=== PATIENT | male | born 1945 | race Caucasian/White ===

== ENCOUNTER 2018-11-09 07:43 | Day surgery (SDC) | payer MEDICARE, BC ==
[~2018-11-09 07:43] MED LIST: Lidocaine 1% PF 2 ML SDV INJECT SCH
[2018-11-09] MEDS: Polymyxin B/Trimethoprim 10 ML Bottle EYERT SCH ×4 (07:55→09:59)
[2018-11-09] MEDS: Tropicamide 1% Ophth Soln 15 ML Bottle EYERT SCH ×5 (08:00→08:44)
[2018-11-09] MEDS: Brimonidine 0.2% Ophth Soln 15 ML Bottle EYERT SCH ×2 (08:00→08:37)
[2018-11-09] MEDS: Phenylephrine 2.5% Ophth Soln 2 ML Bot EYERT SCH ×6 (08:05→09:41)
--- NOTE | 2018-11-09 08:09 | PCM.PREANE ---
Preanesthetic Assessment - Anesthesia/Transfusion/Family Hx Anesthesia History: Prior Anesthesia Without Reaction Family History of Anesthesia Reaction: No Transfusion History: No Prior Transfusion(s) - Review of Systems General: No Symptoms Pulmonary: Cough Cardiovascular: No Symptoms Gastrointestinal: No Symptoms Neurological: No Symptoms Other: Reports: None - Physical Assessment NPO Status Date: 11/08/18 NPO Status Time: 19:00 Pulse: 78 O2 Sat by Pulse Oximetry: 96 Respiratory Rate: 16 Blood Pressure: 162/94 Vital Signs: Last Vital Signs Temp 36.4 C 11/09/18 07:50 Pulse 78 11/09/18 07:50 Resp 16 11/09/18 07:50 BP 162/94 H 11/09/18 07:50 Pulse Ox 96 11/09/18 07:50 Height: 1.93 m Weight: 138.346 kg ASA Class: 2 Mental Status: Alert & Oriented x3 Airway Class: Mallampati = 2 Dentition: Reports: Normal Dentition Thyro-Mental Finger Breadths: 3 Mouth Opening Finger Breadths: 3 Lungs: Clear to Auscultation, Normal Respiratory Effort Cardiovascular: Regular Rate, Regular Rhythm - Allergies Allergies/Adverse Reactions: Allergies Allergy/AdvReac Type Severity Reaction Status Date / Time No Known Allergies Allergy Verified 11/06/18 13:48 - Anesthesia Plan Beta Enrike: Metoprolol Med Last Dose Date: 11/09/18 Med Last Dose Time: 06:15 - Acknowledgements Anesthesia Type Planned: MAC Pt an Appropriate Candidate for the Planned Anesthesia: Yes Alternatives and Risks of Anesthesia Discussed w Pt/Guardian: Yes Pt/Guardian Understands and Agrees with Anesthesia Plan: Yes PreAnesthesia Questionnaire HEENT History: Reports: Cataract, Impaired Vision Cardiovascular History: Reports: High Cholesterol, Hypertension, Other (See Below) (hx palpitations, pt states he feels he hasn't had any recently due to no longer having caffeine.) Respiratory History: Reports: Sleep Apnea (CPAP) Gastrointestinal History: Reports: None Genitourinary History: Reports: Renal Calculus Musculoskeletal History: Reports: None Neurological History: Reports: None Psychiatric History: Reports: None Endocrine/Metabolic History: Reports: Diabetes, Type II (BS 148 @ 0630) Hematologic History: Reports: None - Past Surgical History HEENT Surgical History: Reports: Tonsillectomy Cardiovascular Surgical History: Reports: None Respiratory Surgical History: Reports: None GI Surgical History: Reports: Colonoscopy Endocrine Surgical History: Reports: None Neurological Surgical History: Reports: None Musculoskeletal Surgical History: Reports: None Oncologic Surgical History: Reports: Bone Marrow Aspiration (06/13 negative, were looking for bone CA per pt) - SUBSTANCE USE Smoking Status *Q: Never Smoker - HOME MEDS Home Medications: Home Meds Allopurinol [Zyloprim] 50 mg PO DAILY 11/06/18 [History] Dulaglutide [Trulicity] 1 dose SQ ASDIRECTED 11/06/18 [History] Empagliflozin [Jardiance] 25 mg PO DAILY 11/06/18 [History] Furosemide [Lasix] 40 mg PO DAILY 11/06/18 [History] Metoprolol Tartrate 150 mg PO BID 11/06/18 [History] Pramipexole [Mirapex] 1 mg PO BID 11/06/18 [History] Telmisartan 80 mg PO DAILY 11/06/18 [History] Terazosin [Hytrin] 5 mg PO DAILY 11/06/18 [History] amLODIPine Besylate [Amlodipine Besylate] 10 mg PO DAILY 11/06/18 [History] atorvaSTATin [Lipitor] 40 mg PO DAILY 11/06/18 [History] - CURRENT (IN HOUSE) MEDS Current Meds: Current Medications Brimonidine Tartrate (Brimonidine Tartrate 0.2% Ophth Soln) 0 ml EYERT ASDIRECTED RAJIV Stop: 11/09/18 18:00 Last Admin: 11/09/18 08:00 Dose: 1 drop Cefuroxime Sodium (Zinacef) 0 mg EYERT ASDIRECTED RAJIV Stop: 11/09/18 18:00 Lidocaine HCl (Xylocaine-Mpf 1%) 0 ml INJECT ASDIRECTED RAJIV Stop: 11/09/18 18:00 Phenylephrine HCl (Petr-Synephrine 2.5% Ophth Soln) 0 ml EYERT ASDIRECTED RAJIV Stop: 11/09/18 18:00 Pilocarpine HCl (Pilocar 4% Ophth Soln) 0 ml EYERT ASDIRECTED RAJIV Stop: 11/09/18 18:00 Polymyxin/Trimethoprim Sulfate (Polytrim Ophth Soln) 0 ml EYERT ASDIRECTED RAJIV Stop: 11/09/18 18:00 Last Admin: 11/09/18 07:55 Dose: 1 drop Tetracaine HCl (Tetracaine 0.5% Steri-Unit Dena) 0 ml EYERT ASDIRECTED RAJIV Stop: 11/09/18 18:00 Tropicamide (Mydriacyl 1% Ophth Soln) 0 ml EYERT ASDIRECTED RAJIV Stop: 11/09/18 18:00 Last Admin: 11/09/18 08:00 Dose: 1 drop Discontinued Medications Brimonidine Tartrate (Alphagan 0.2% Ophth Soln) 0 ml EYERT ASDIRECTED RAJIV Stop: 11/09/18 18:00
[2018-11-09] MEDS: Tetracaine HCl/PF 0.5% 4 ML Bottle EYERT SCH ×5 (08:49→09:49)
[2018-11-09] MEDS: Pilocarpine 4% Ophth Soln 15 ML Bot EYERT SCH ×2 (09:08→09:59)
[2018-11-09] MEDS: Cefuroxime 10 MG/ML SYRINGE EYERT SCH ×2 (09:08→09:58)
[2018-11-09] MEDS: Brimonidine 0.2% Ophth Soln 5 ML Bottle EYERT SCH ×2 (09:08→09:59)
--- NOTE | 2018-11-09 10:00 | PCM48HPAN ---
Post Anesthesia Note - EVALUATION WITHIN 48HRS OF ANESTHETIC Vital Signs in Normal Range: Yes Patient Participated in Evaluation: Yes Respiratory Function Stable: Yes Airway Patent: Yes Cardiovascular Function Stable: Yes Hydration Status Stable: Yes Pain Control Satisfactory: Yes Nausea and Vomiting Control Satisfactory: Yes Mental Status Recovered: Yes Pulse Rate: 78 Resp Rate: 16 Blood Pressure: 162/94
== END 2018-11-09 10:11 | disposition home or self-care (01) ==
LOC: JD.SDS 07:43
PROVIDERS: ATTEND Ophthalmology
DX: H25.813 Combined forms of age-related cataract, bilateral (principal); H02.834 Dermatochalasis of left upper eyelid; H02.831 Dermatochalasis of right upper eyelid; H16.223 Keratoconjunctivitis sicca, not specified as Sjogren's, bilateral; H16.103 Unspecified superficial keratitis, bilateral; E11.9 Type 2 diabetes mellitus without complications; E78.00 Pure hypercholesterolemia, unspecified; I10 Essential (primary) hypertension; G47.30 Sleep apnea, unspecified; M10.9 Gout, unspecified; Z99.89 Dependence on other enabling machines and devices; Z79.899 Other long term (current) drug therapy
CPT/HCPCS: 66984; J0697; J2001; C1780

== ENCOUNTER 2020-06-29 09:58 | Day surgery (SDC) | payer MEDICARE, BC ==
[~2020-06-29 09:58] MED LIST changes: +Lactated Ringers 1,000 ML IV SCH; -Lidocaine 1% PF 2 ML SDV INJECT SCH; +Lidocaine 1%/Sod Bicarbonate in NS 8.4% 1 ML Syringe IDERM PRN; +Sodium Chloride 0.9% 10 ML Syringe FLUSH PRN
[2020-06-29] MEDS ORDERED: Propofol 200 MG/20 ML SDV ONE ×3 (11:17→13:03)
[2020-06-29] MEDS ORDERED: fentaNYL 100 MCG/2 ML SDV ONE (11:22)
--- NOTE | 2020-06-29 11:26 | PCM.PREANE ---
Preanesthetic Assessment - Procedure Proposed Procedure: Screening colonoscopy - Anesthesia/Transfusion/Family Hx Anesthesia History: Prior Anesthesia Without Reaction Family History of Anesthesia Reaction: No Transfusion History: No Prior Transfusion(s) - Review of Systems General: No Symptoms Pulmonary: Other (Sleep Apnea with CPAP) Cardiovascular: Palpitations (Occasional , controlled with metoprolol. ), Other (CHF, Lasix. ) Gastrointestinal: No Symptoms Neurological: No Symptoms Other: Reports: Diabetes (Blood glucose 143mg/dl) - Physical Assessment NPO Status Date: 06/29/20 NPO Status Time: 04:30 (prep) Vital Signs: Last Vital Signs Temp 36.2 C 06/29/20 09:54 Pulse 84 06/29/20 09:54 Resp 18 06/29/20 09:54 BP 191/98 H 06/29/20 09:54 Pulse Ox 94 L 06/29/20 09:54 Height: 1.93 m Weight: 128 kg ASA Class: 3 Mental Status: Alert & Oriented x3 (drowsy today didn't get much sleep last evening) Airway Class: Mallampati = 2 Dentition: Reports: Broken Tooth/Teeth Thyro-Mental Finger Breadths: 3 Mouth Opening Finger Breadths: 3 ROM/Head Extension: Full Lungs: Clear to Auscultation, Normal Respiratory Effort, Decreased Breath Sounds Cardiovascular: Regular Rate, Regular Rhythm - Lab Values: Laboratory Last Values POC Glucose 143 mg/dL (83-110) H 06/29/20 10:09 - Allergies Allergies/Adverse Reactions: Allergies Allergy/AdvReac Type Severity Reaction Status Date / Time No Known Allergies Allergy Verified 06/29/20 10:34 - Acknowledgements Anesthesia Type Planned: MAC Pt an Appropriate Candidate for the Planned Anesthesia: Yes Alternatives and Risks of Anesthesia Discussed w Pt/Guardian: Yes Pt/Guardian Understands and Agrees with Anesthesia Plan: Yes PreAnesthesia Questionnaire HEENT History: Reports: Allergic Rhinitis, Cataract, Impaired Vision, Other (See Below) Other HEENT History: nasal congestion, rhinorrhea, wears hearing aids Cardiovascular History: Reports: Heart Failure, Hypertension, Other (See Below) Other Cardiovascular History: palpitations Respiratory History: Reports: Sleep Apnea Gastrointestinal History: Reports: None, Colon Polyp, Other (See Below) Other Gastrointestinal History: chronic anal fissure Genitourinary History: Reports: Renal Calculus, Other (See Below) Other Genitourinary History: erectile dysfunction, hypogonadism, yeast infection, kidney stones [employer] H[employer]/HOSTESS History: Reports: None Musculoskeletal History: Reports: Gout, Osteoarthritis, Other (See Below) Other Musculoskeletal History: restless leg syndrome Neurological History: Reports: None Psychiatric History: Reports: None Endocrine/Metabolic History: Reports: Diabetes, Type II Hematologic History: Reports: None Immunologic History: Reports: None Oncologic (Cancer) History: Reports: None Dermatologic History: Reports: Other (See Below) Other Dermatologic History: stasis dermatits, perianal lesion - Infectious Disease History Infectious Disease History: Reports: None - Past Surgical History Head Surgeries/Procedures: Reports: None HEENT Surgical History: Reports: Cataract Surgery, Tonsillectomy Cardiovascular Surgical History: Reports: None Respiratory Surgical History: Reports: None GI Surgical History: Reports: Colonoscopy Female Surgical History: Reports: None Male Surgical History: Reports: None Endocrine Surgical History: Reports: None Neurological Surgical History: Reports: None Musculoskeletal Surgical History: Reports: None Oncologic Surgical History: Reports: Bone Marrow Aspiration Dermatological Surgical History: Reports: None - SUBSTANCE USE Tobacco Use Status *Q: Never Tobacco User Days Per Week of Alcohol Use: 4 Number of Drinks Per Day: 4 Total Drinks Per Week: 16 Recreational Drug Use History: No - HOME MEDS Home Medications: Home Meds Dulaglutide [Trulicity] 1 dose SQ TU 11/06/18 [History] Metoprolol Tartrate 150 mg PO BID 11/06/18 [History] Pramipexole [Mirapex] 1 - 2 mg PO BEDTIME 11/06/18 [History] Telmisartan 80 mg PO DAILY 11/06/18 [History] Terazosin [Hytrin] 5 mg PO DAILY 11/06/18 [History] allopurinoL [Zyloprim] 50 mg PO DAILY 11/06/18 [History] atorvaSTATin [Lipitor] 40 mg PO DAILY 11/06/18 [History] Azelastine [Astelin Nasal Soln] 1 dose NASBOTH DAILY 06/28/20 [History] Betamethasone/Propylene Glyc [Betamethasone Dp Aug 0.05% Oin] 1 dose TOP BID PRN 06/28/20 [History] Empagliflozin/Metformin HCl [Synjardy Xr 25-1,000 mg Tablet] 1 tab PO DAILY 06/28/20 [History] Fluticasone Propionate [Flonase] 1 dose NASBOTH DAILY 06/28/20 [History] Furosemide [Lasix] 30 mg PO DAILY 06/28/20 [History] Sildenafil [Viagra] 100 mg PO ASDIRECTED PRN 06/28/20 [History] Testosterone 1 dose TOP DAILY 06/28/20 [History] amLODIPine [Norvasc] 5 mg PO DAILY 06/28/20 [History] - CURRENT (IN HOUSE) MEDS Current Meds: Current Medications Lactated Ringer's (Ringers, Lactated) 1,000 mls @ 125 mls/hr IV ASDIRECTED RAJIV Stop: 06/29/20 23:00 Last Admin: 06/29/20 10:12 Dose: 125 mls/hr Documented by: Lidocaine/Sodium Bicarbonate (Buffered Lidocaine 1% In Ns 8.4%) 0.25 ml IDERM ONETIME PRN PRN Reason: Prior to IV Start Stop: 06/29/20 18:00 Last Admin: 06/29/20 10:12 Dose: 0.25 ml Documented by: Sodium Chloride (Saline Flush) 10 ml FLUSH ASDIRECTED PRN PRN Reason: Keep Vein Open Stop: 07/02/20 18:00
[2020-06-29] MEDS ORDERED: Lactated Ringers 1,000 ML ONE (11:29)
[2020-06-29] MEDS ORDERED: Lidocaine 1% 4 ML ONE (11:30)
--- NOTE | 2020-06-29 13:28 | PCM48HPAN ---
Post Anesthesia Note - EVALUATION WITHIN 48HRS OF ANESTHETIC Vital Signs in Normal Range: Yes Patient Participated in Evaluation: Yes Respiratory Function Stable: Yes Airway Patent: Yes Cardiovascular Function Stable: Yes Hydration Status Stable: Yes Pain Control Satisfactory: Yes Nausea and Vomiting Control Satisfactory: Yes Mental Status Recovered: Yes Vital Signs: Last Vital Signs Temp 97.2 F 06/29/20 09:54 Pulse 84 06/29/20 09:54 Resp 18 06/29/20 09:54 BP 191/98 H 06/29/20 09:54 Pulse Ox 94 L 06/29/20 09:54 1323 111/54 93 77 16 97.0
--- NOTE | 2020-06-29 13:31 | PCM.PRNOTE ---
- Free Text/Narrative Note: Date: 06/29/2020 Procedure: Screening colonoscopy Endoscopist: Jeet Yang MD Findings: Morbidly obese patient with challenging colonoscopy. Several polyps identified, 7 total were biopsied. Scattered diverticula. Internal hemorrhoids. Detailed Report: The patient was taken to the endoscopy suite and placed in left lateral decubitus position. Timeout was performed and monitored anesthesia care was initiated. The anus appeared normal, sphincter tone was hypotensive, and p rostate felt normal. Digital rectal exam was otherwise unremarkable. The colonoscope was inserted and advanced all the way to the cecum. This was quite challenging due to the patient's body habitus and colon redundancy. The cecum was reached, and the appendiceal orifice was visualized. Not far from the appendiceal orifice was a sessile lesion, consistent with the lesion described in prior report which had come back as a sessile serrated adenoma in 2018. This lesion did not measure more than 1 cm. This was very difficult to biopsy with forceps. Pieces of tissue were taken, and attempts at fulguration were made, but this was very challenging to access. An additional small pedunculated polyp was identified in the ascending colon, which was removed with hot snare polypectomy technique. Between the ascending colon and the descending colon, several small sessile polyps were identified, and in total 7 specimens were sent for pathologic analysis. Technique for polypectomy included removal with forceps and fulguration of tissue base and hot snare polypectomy if the polyp was amenable to this. There were a few scattered diverticula noted throughout the length of the colon. No lesions were noted in the sigmoid or rectum. On retroflexion of the scope within the rectum, minor internal hemorrhoids were appreciated. Air was suctioned from the colon prior to withdrawal of the scope. The patient tolerated the procedure well.
== END 2020-06-29 14:25 | disposition home or self-care (01) ==
LOC: JD.SDS 09:58
PROVIDERS: ATTEND Surgery
DX: Z12.11 Encounter for screening for malignant neoplasm of colon (principal); D12.0 Benign neoplasm of cecum; D12.2 Benign neoplasm of ascending colon; D12.4 Benign neoplasm of descending colon; D12.3 Benign neoplasm of transverse colon; K57.30 Diverticulosis of large intestine without perforation or abscess without bleeding; K64.8 Other hemorrhoids; I11.0 Hypertensive heart disease with heart failure; I50.9 Heart failure, unspecified; E78.5 Hyperlipidemia, unspecified; E11.9 Type 2 diabetes mellitus without complications; Z79.899 Other long term (current) drug therapy
CPT/HCPCS: 45380; 45385; 45388; 82962; 88305; J2704; J3010; J7120; 00812

== ENCOUNTER → 2021-02-15 | Day surgery (SDC) | payer MEDICARE, BC ==
[2021-02-15] MEDS: Brimonidine 0.2% Ophth Soln 5 ML Bottle EYELF SCH ×2 (09:48→10:50)
[2021-02-15] MEDS: Phenylephrine 2.5% Ophth Soln 2 ML Bot EYELF SCH ×3 (09:53→10:16)
[2021-02-15] MEDS: Tropicamide 1% Ophth Soln 15 ML Bottle EYELF SCH ×3 (09:55→10:13)
== END ==
LOC: JD.SDS 09:39
PROVIDERS: ATTEND Ophthalmology
DX: H26.492 Other secondary cataract, left eye (principal); H16.223 Keratoconjunctivitis sicca, not specified as Sjogren's, bilateral; H02.834 Dermatochalasis of left upper eyelid; E11.9 Type 2 diabetes mellitus without complications; E78.00 Pure hypercholesterolemia, unspecified; M10.9 Gout, unspecified; I10 Essential (primary) hypertension; Z79.899 Other long term (current) drug therapy; Z79.84 Long term (current) use of oral hypoglycemic drugs

== ENCOUNTER → 2021-05-03 | Day surgery (SDC) | payer MEDICARE, BC ==
[2021-05-03] MEDS: Brimonidine 0.2% Ophth Soln 5 ML Bottle EYERT SCH ×2 (10:38→11:41)
[2021-05-03] MEDS: Phenylephrine 2.5% Ophth Soln 2 ML Bot EYERT SCH ×2 (10:46→10:58)
[2021-05-03] MEDS: Tropicamide 1% Ophth Soln 15 ML Bottle EYERT SCH ×2 (10:52→11:03)
== END ==
LOC: JD.SDS 10:13
PROVIDERS: ATTEND Ophthalmology
DX: E11.36 Type 2 diabetes mellitus with diabetic cataract (principal); H26.491 Other secondary cataract, right eye; H16.223 Keratoconjunctivitis sicca, not specified as Sjogren's, bilateral; H02.831 Dermatochalasis of right upper eyelid; H02.834 Dermatochalasis of left upper eyelid; G43.B0 Ophthalmoplegic migraine, not intractable; E78.00 Pure hypercholesterolemia, unspecified; I10 Essential (primary) hypertension; M10.9 Gout, unspecified; Z98.890 Other specified postprocedural states; Z79.899 Other long term (current) drug therapy; Z79.84 Long term (current) use of oral hypoglycemic drugs; Z96.1 Presence of intraocular lens

== ENCOUNTER 2023-07-20 10:12 | Emergency (ER) | payer MEDICARE ==
[2023-07-20] MEDS: Diphtheria,Pertussis(Acell),Tetanus Vaccine 0.5 ML Syringe IM ONE (10:51)
[2023-07-20] MEDS: ceFAZolin 1 GM Vial IM ONE (10:51)
[2023-07-20 11:19] LABS: BASOPHILS PERCENT AUTO 0.6 % (0.0-1.0); EOSINOPHILS ABSOLUTE AUTO 0.1 K/mm3 (0.0-0.4); EOSINOPHILS PERCENT AUTO 1.3 % (0.0-6.0); HEMATOCRIT 42.9 % (42.0-52.0); HEMOGLOBIN 13.7 gm/dl (14.0-18.0); IMMATURE GRAN ABSOLUTE AUTO 0.01 K/mm3 (0.00-0.05); IMMATURE GRAN PERCENT AUTO 0.2 % (0.0-0.4); LYMPHOCYTES PERCENT AUTO 19.3 % (24.0-44.0); MEAN CORPUSCULAR HEMOGLOBIN 28.6 pg (28.0-32.0); MEAN CORPUSCULAR HGB CONC 31.9 g/dl (32.0-36.0); MEAN CORPUSCULAR VOLUME 89.6 fl (83.0-99.0); MEAN PLATELET VOLUME 9.5 fl (9.4-12.4); MONOCYTES ABSOLUTE AUTO 0.4 K/mm3 (0.0-0.8); MONOCYTES PERCENT AUTO 6.8 % (0.0-8.0); NEUTROPHILS ABSOLUTE AUTO 3.8 K/mm3 (1.8-7.7); NEUTROPHILS PERCENT AUTO 71.8 % (41.0-71.0); PLATELET COUNT,PLT 143 K/mm3 (150-400); RED BLOOD CELL COUNT 4.79 M/mm3 (4.52-5.90); WHITE BLOOD CELL COUNT,WBC 5.28 K/mm3 (3.9-11.3)
[2023-07-20 11:37] LABS: PROTHROMBIN TIME 10.7 SECONDS (9.7-12.0)
[2023-07-20 11:39] LABS: A/G RATIO 0.9 (1-2); ALBUMIN 3.5 g/dl (3.4-5.0); ANION GAP 17.3 (5-15); BILIRUBIN TOTAL 0.6 mg/dL (0.2-1.0); BUN/CREATININE RATIO 11.1 (14-18); CALCIUM 8.6 mg/dL (8.5-10.1); CREATININE 0.9 mg/dL (0.7-1.3); EST CRCL DRUG DOSING (CG) 77.38 mL/min; ETHANOL BLOOD MEDICAL 0.21 gm% (0.00); MAGNESIUM 1.8 mg/dL (1.8-2.4); POTASSIUM,K 3.3 mEq/L (3.5-5.1); PROTEIN TOTAL,TP 7.3 g/dl (6.4-8.2)
[2023-07-20 13:08] LABS: BARBITURATE SCREEN,URINE NEGATIVE (CUTOFF=200); BENZODIAZEPINES SCREEN,URINE NEGATIVE (CUTOFF=150); BUPRENORPHINE SCREEN,URINE NEGATIVE (CUTOFF=10); METHADONE SCREEN, URINE NEGATIVE (CUT0FF=200); METHAMPHETAMINES SCREEN, URINE NEGATIVE (CUTOFF=500); OXYCODONE SCREEN,URINE NEGATIVE (CUT0FF=100); THC SCREEN,URINE 20 NG/ML NEGATIVE (CUTOFF=50)
[2023-07-20 13:09] LABS: AMPHETAMINES SCREEN, URINE NEGATIVE (CUTOFF=500)
[2023-07-20] MEDS: Sodium Chloride 0.9% 1,000 ML IV ONE (13:37)
== END 2023-07-20 13:44 | disposition home or self-care (01) ==
LOC: JD.ED 10:12
DX: S06.0X1A Concussion with loss of consciousness of 30 minutes or less, initial encounter (principal); S01.01XA Laceration without foreign body of scalp, initial encounter; F10.920 Alcohol use, unspecified with intoxication, uncomplicated; I10 Essential (primary) hypertension; E11.9 Type 2 diabetes mellitus without complications; Z79.899 Other long term (current) drug therapy; W22.8XXA Striking against or struck by other objects, initial encounter
CPT/HCPCS: 12002; 36415; 70450; 72125; 80053; 80306; 80307; 83735; 85025; 85610; 85730; 90471; 90715; 96372; 99284; J0690

== ENCOUNTER 2024-03-28 14:55 | Emergency (ER) | payer MEDICARE ==
[2024-03-28] MEDS ORDERED: Sodium Chloride 0.9% 10 ML Syringe FLUSH PRN (15:42)
[2024-03-28 16:05] LABS: BASOPHILS PERCENT AUTO 0.5 % (0.0-1.0); EOSINOPHILS PERCENT AUTO 0.7 % (0.0-6.0); HEMATOCRIT 41.9 % (42.0-52.0); IMMATURE GRAN ABSOLUTE AUTO 0.03 K/mm3 (0.00-0.05); IMMATURE GRAN PERCENT AUTO 0.5 % (0.0-0.4); LYMPHOCYTES ABSOLUTE AUTO 0.6 K/mm3 (1.0-4.8); LYMPHOCYTES PERCENT AUTO 10.2 % (24.0-44.0); MEAN CORPUSCULAR HEMOGLOBIN 27.3 pg (28.0-32.0); MEAN PLATELET VOLUME 9.4 fl (9.4-12.4); MONOCYTES ABSOLUTE AUTO 0.3 K/mm3 (0.0-0.8); MONOCYTES PERCENT AUTO 5.3 % (0.0-8.0); NEUTROPHILS ABSOLUTE AUTO 4.7 K/mm3 (1.8-7.7); NEUTROPHILS PERCENT AUTO 82.8 % (41.0-71.0); PLATELET COUNT,PLT 154 K/mm3 (150-400); RED BLOOD CELL COUNT 4.76 M/mm3 (4.52-5.90); WHITE BLOOD CELL COUNT,WBC 5.68 K/mm3 (3.9-11.3)
[2024-03-28 16:39] LABS: ALBUMIN 3.6 g/dl (3.4-5.0); ANION GAP 16.9 (5-15); BILIRUBIN TOTAL 2.2 mg/dL (0.2-1.0); BUN/CREATININE RATIO 19.1 (14-18); CALCIUM 8.7 mg/dL (8.5-10.1); CREATININE 1.1 mg/dL (0.7-1.3); EST CRCL DRUG DOSING (CG) 65.76 mL/min; POTASSIUM,K 3.9 mEq/L (3.5-5.1); PROTEIN TOTAL,TP 7.4 g/dl (6.4-8.2)
[2024-03-28 16:42] LABS: CORONAVIRUS COVID-19 NAA NEGATIVE (NEGATIVE); INFLUENZA A NAA NEGATIVE (NEGATIVE); RESPIRATORY SYNCYTIAL VIR NAA NEGATIVE (NEGATIVE)
[2024-03-28] MEDS: Labetalol 100 MG/20 ML MDV IVPUSH ONE (19:07)
== END 2024-03-28 19:25 | disposition home or self-care (01) ==
LOC: JD.ED 14:55
DX: I50.9 Heart failure, unspecified (principal); I10 Essential (primary) hypertension; E11.9 Type 2 diabetes mellitus without complications; Z79.899 Other long term (current) drug therapy
CPT/HCPCS: 0241U; 36415; 71045; 80053; 83735; 83880; 84484; 85025; 93005; 99285; J1920

== ENCOUNTER 2024-06-03 06:40 | Day surgery (SDC) | payer MEDICARE ==
[~2024-06-03 06:40] MED LIST changes: -Lactated Ringers 1,000 ML IV SCH; -Lidocaine 1%/Sod Bicarbonate in NS 8.4% 1 ML Syringe IDERM PRN; +Sodium Chloride 0.9% 10 ML Syringe FLUSH SCH
[2024-06-03] MEDS ORDERED: Lidocaine 1% 6 ML ONE (07:04)
[2024-06-03] MEDS ORDERED: Propofol 200 MG/20 ML SDV ONE ×3 (07:04→08:08)
[2024-06-03] MEDS: Lactated Ringers 1,000 ML IV SCH (07:15)
[2024-06-03] MEDS ORDERED: Ondansetron 4 MG/2 ML SDV IVPUSH PRN (13:25)
[2024-06-03] MEDS ORDERED: fentaNYL 100 MCG/2 ML SDV IVPUSH PRN (13:25)
[2024-06-03] MEDS ORDERED: HYDROmorphone 0.5 MG/0.5 ML Syringe IVPUSH PRN (13:25)
== END 2024-06-03 09:30 | disposition home or self-care (01) ==
LOC: JD.SDS 06:40
PROVIDERS: ATTEND Surgery
DX: Z12.11 Encounter for screening for malignant neoplasm of colon (principal); D12.2 Benign neoplasm of ascending colon; D12.5 Benign neoplasm of sigmoid colon; K57.30 Diverticulosis of large intestine without perforation or abscess without bleeding; K21.9 Gastro-esophageal reflux disease without esophagitis; I10 Essential (primary) hypertension; E66.3 Overweight; E11.9 Type 2 diabetes mellitus without complications; Z68.35 Body mass index [BMI] 35.0-35.9, adult; Z79.2 Long term (current) use of antibiotics; Z79.82 Long term (current) use of aspirin; Z79.84 Long term (current) use of oral hypoglycemic drugs; Z79.899 Other long term (current) drug therapy; Z86.0100 Personal history of colon polyps, unspecified
CPT/HCPCS: 45385; 88305; J2704; J7120; 00811; 99100; J3490

== ENCOUNTER 2025-03-18 03:09 | Emergency (ER) | payer MEDICARE ==
[2025-03-18] MEDS ORDERED: Sodium Chloride 0.9% 10 ML Syringe FLUSH PRN (03:21)
[2025-03-18 03:27] LABS: BASOPHILS ABSOLUTE AUTO 0.0 K/mm3 (0.0-0.2); BASOPHILS PERCENT AUTO 0.9 % (0.0-1.0); EOSINOPHILS ABSOLUTE AUTO 0.2 K/mm3 (0.0-0.4); EOSINOPHILS PERCENT AUTO 4.8 % (0.0-6.0); IMMATURE GRAN ABSOLUTE AUTO 0.01 K/mm3 (0.00-0.05); IMMATURE GRAN PERCENT AUTO 0.2 % (0.0-0.4); LYMPHOCYTES ABSOLUTE AUTO 1.0 K/mm3 (1.0-4.8); LYMPHOCYTES PERCENT AUTO 21.9 % (24.0-44.0); MEAN PLATELET VOLUME 9.0 fl (9.4-12.4); MONOCYTES ABSOLUTE AUTO 0.6 K/mm3 (0.0-0.8); MONOCYTES PERCENT AUTO 13.4 % (0.0-8.0); NEUTROPHILS ABSOLUTE AUTO 2.7 K/mm3 (1.8-7.7); NEUTROPHILS PERCENT AUTO 58.8 % (41.0-71.0); NRBC ABSOLUTE 0.00 (0.00-0.02); NRBC PERCENT 0.0 % (0.0-0.2); PLATELET COUNT,PLT 148 K/mm3 (150-400); RED BLOOD CELL COUNT 4.77 M/mm3 (4.52-5.90); WHITE BLOOD CELL COUNT,WBC 4.56 K/mm3 (3.9-11.3)
[2025-03-18 04:02] LABS: A/G RATIO 0.9 (1-2); ALANINE AMINOTRANSFERASE,ALT 42.0 U/L (16-63); ASPARTATE AMNIOTRANSFERASE,AST 31.0 U/L (15-37); BILIRUBIN TOTAL 0.4 mg/dL (0.2-1.0); BLOOD UREA NITROGEN,BUN 19.0 mg/dL (7-18); CARBON DIOXIDE,CO2 26.0 mEq/L (21-32); CHLORIDE,CL 101.0 mEq/L (98-107); CREATININE 1.5 mg/dL (0.7-1.3); EST CRCL DRUG DOSING (CG) 47.42 mL/min; ESTIMATED GFR 46.0 mL/min (>60); GLUCOSE RANDOM 136.0 mg/dL (70-99); POTASSIUM,K 4.4 mEq/L (3.5-5.1); PROTEIN TOTAL,TP 7.3 g/dl (6.4-8.2); SODIUM,NA 138.0 mEq/L (136-145); TROPONIN I HIGH SENSITIVITY 20.0 pg/mL (<=76)
== END 2025-03-18 05:06 | disposition home or self-care (01) ==
LOC: JD.ED 03:09
DX: R55 Syncope and collapse (principal); F10.120 Alcohol abuse with intoxication, uncomplicated; I10 Essential (primary) hypertension; E11.9 Type 2 diabetes mellitus without complications; Z79.82 Long term (current) use of aspirin; Z79.84 Long term (current) use of oral hypoglycemic drugs; Z79.899 Other long term (current) drug therapy
CPT/HCPCS: 36415; 70450; 70450-26; 71046; 71046-26; 80053; 80307; 83735; 83880; 84484; 85025; 93005; 93010; 99284; 99285